=== PATIENT | female | born 1945 | race Caucasian/White ===

== ENCOUNTER 2019-09-29 07:05 | Outpatient (CLI) | payer MEDICARE, BC ==
[2019-09-29 12:49] LABS: #Eosinphils 0.1 thou/uL (0.0-0.7); #Lymphocytes 2.7 thou/uL (1.20-3.40); #Monocytes 0.9 thou/uL (0.11-0.59); %Basophils 0.6 % (0.0-1.0); %Eosinophils 2.1 % (0.0-10.0); %Lymphocytes 40.4 % (21.0-51.0); %Monocytes 12.6 % (0.0-10.0); %Neutrophils 44.3 % (42.0-75.0); Hemoglobin 13.4 g/dL (12.0-16.0); Mean Corpuscular HGB CONC 33.7 g/dL (32.0-36.0); Mean Corpuscular Hemoglobin 32.4 pg (27.0-31.0); Platelet Count 174 thou/uL (130-400); RBC Distribution Width 11.4 % (11.5-14.5); Red Blood Cell (RBC) Count 4.14 mill/uL (4.20-5.40); White Blood Cell (WBC) Count 6.7 thou/uL (4.8-10.8)
[2019-09-29 13:12] LABS: Anion Gap 11 mmol/L (10-20); BUN (Urea Nitrogen) 15 mg/dL (9.8-20.1); Calc. Creatinine Clearance 0 mL/min (70-130); Calcium 9.7 mg/dL (7.8-10.44); Carbon Dioxide 27 mmol/L (23-31); Chloride 106 mmol/L (98-107); Estimated GFR-MDRD 74; Glucose 83 mg/dL (83-110); Potassium 4.2 mmol/L (3.5-5.1); Sodium 140 mmol/L (136-145)
== END 2019-09-29 07:06 | disposition home or self-care (01) ==
LOC: LABBT 07:05
PROVIDERS: ATTEND Orthopaedic Surgery
DX: Z01.818 Encounter for other preprocedural examination (principal); M75.101 Unspecified rotator cuff tear or rupture of right shoulder, not specified as traumatic
CPT/HCPCS: 80048; 85025; 93005; 93010

== ENCOUNTER 2019-10-01 07:41 | Day surgery (SDC) | payer MEDICARE, BC ==
[2019-09-29 11:03] VITALS: BMI 22.3
[2019-10-01] MEDS ORDERED: Fentanyl 100 MCG/2 ML VIAL ONE (08:18)
[2019-10-01] MEDS ORDERED: Midazolam HCl 2 mg/2 ml Vial ONE (08:18)
[2019-10-01] MEDS ORDERED: Promethazine HCl 25 MG/ML VIAL IM PRN (09:01)
[2019-10-01] MEDS ORDERED: Ropivacaine 0.2% 550 ML 550 ML NERVE BLCK SCH (09:01)
[2019-10-01] MEDS ORDERED: Ondansetron PF 4 MG/2 ML Vial IVP PRN (09:01)
[2019-10-01] MEDS ORDERED: Zolpidem Tartrate 5 MG TAB PO PRN (09:01)
[2019-10-01] MEDS ORDERED: Ketorolac Tromethamine 30 MG/ML VIAL IVP PRN (09:01)
[2019-10-01] MEDS ORDERED: Fentanyl 100 MCG/2 ML VIAL SLOW IVP PRN (09:02)
[2019-10-01] MEDS ORDERED: Acetaminophen 325 MG TAB PO PRN (09:03)
[2019-10-01] MEDS ORDERED: Lidocaine 1% w/Epinephrine 1:100K 30 ML VIAL ONE (10:40)
[2019-10-01] MEDS ORDERED: PROPOFOL 200 MG/20 ML VIAL ONE (12:57)
[2019-10-01] MEDS ORDERED: Ropivacaine 0.2% HCl/PF (40 MG/20 ML VIAL) ONE (12:57)
[2019-10-01] MEDS ORDERED: Ropivacaine 0.5% HCl/PF (150 MG/30 ML VIAL) ONE (12:57)
[2019-10-01] MEDS ORDERED: Ondansetron PF 4 MG/2 ML Vial ONE (12:57)
[2019-10-01] MEDS ORDERED: Glycopyrrolate 0.2 MG/ML 5 ML SYRINGE ONE (12:57)
[2019-10-01] MEDS ORDERED: Lidocaine 1% PF 5 ML VIAL ONE (12:57)
[2019-10-01] MEDS ORDERED: Rocuronium Bromide 10 MG/ML (10ML VIAL) ONE (12:57)
--- NOTE | 2019-10-01 15:26 | OP ---
DATE OF PROCEDURE: 10/01/2019 PREOPERATIVE DIAGNOSES: Right shoulder rotator cuff tear, labral tear, and biceps tendon tear. POSTOPERATIVE DIAGNOSES: Right shoulder rotator cuff tear, labral tear, and biceps tendon tear. PROCEDURES PERFORMED: 1. Right shoulder arthroscopy with debridement and shaving of degenerative labral tear and biceps tendon as well as any loose cartilage in the glenohumeral joint. 2. Arthroscopic rotator cuff repair. 3. Arthroscopic biceps tenotomy. 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 ESTIMATED BLOOD LOSS: Minimal. COMPLICATIONS: None. ANESTHESIA: She did have a general anesthetic as well as preoperative block. IMPLANTS: We used 1 triple-loaded titanium rotator cuff anchor. We also used a 4.75 Bio[employer]posite SwiveLock for a double-row repair. DISPOSITION: She did go to recovery room in stable condition. INDICATIONS: This is an active 74-year-old female, who comes in complaining of significant pain and weakness using her right arm. At this time, she opted to have surgery. DESCRIPTION OF PROCEDURE: After all appropriate consent forms were explained and signed, she was taken back to the operative room and at this time was given general anesthetic. Once the level of anesthesia was appropriate, she was rolled to the left lateral decubitus position with all bony prominences well padded. Axillary roll was placed underneath the left axilla and a gallegos bag was inflated to hold her in this position. All bony prominences were well padded. The arm was then taken through full range of motion and was then suspended arthroscopically in standard fashion with 10 pounds of weight. The right shoulder and upper extremity were then prepped and draped in standard surgical fashion. At this time, bony anatomical landmarks were drawn out, and the subacromial space was infiltrated with Marcaine with epinephrine. A posterior portal was established. Scope was placed into the shoulder joint. Immediately, we noted a large amount of tearing in the shoulder including the rotator cuff, the biceps tendon itself and circumferential labrum. The anterior working portal was made using a needle localization technique and the shaver was used to shave down these areas to give us better visualization. Indeed, the biceps tendon did have significant tearing, it was not felt appropriate for a tenodesis and a tenotomy was performed using the SERFAS energy probe. The undersurface of the rotator cuff was debrided from this area. There was significant degenerative labrum circumferentially. This was also debrided with the shaver and there was some small areas of cartilage loss from the glenoid, which was gently debrided with a mechanical shaver as well. No loose bodies were noted in the axillary pouch. The top portion of subscapularis had to be debrided as a partial tear was noted, but the remaining portion of the tendon was intact. Once this was done, the inside of the joint looked pretty good. We then removed the camera, replaced into the subacromial space. Lateral working portal was then made. At this time, the bursa was removed from off the underlying cuff. The soft tissue was removed off the tuberosity and we were able to define our shape of our tear. Posteriorly, we needed some ypgl-sh-lbid sutures and the Scorpion device was used to place 2 Orthocord sutures in [id number] fashion. Once this was done, we then placed 1 triple-loaded anchor through a separate stab incision into the greater tuberosity. We then ran these 3 sets of sutures through the tendon using the Scorpion device in mattress fashion. These were all tied and all 6 strings were then taken laterally down the arm and placed through a 4.75 SwiveLock for our double row repair. This gave us an excellent repair. The scope was then removed and at this time, the shoulder was drained. Our portals were then closed with nylon sutures. Bulky sterile dressing was applied with paper tape, and at this time, she was awakened. She was taken to recovery room in stable condition. All counts were correct at the end of the case and she did receive preoperative IV antibiotics. Job ID: [id number]
== END 2019-10-01 16:00 | disposition home or self-care (01) ==
LOC: SDC 07:41
PROVIDERS: ATTEND Orthopaedic Surgery
PROC: 0LQ14ZZ Repair Right Shoulder Tendon, Percutaneous Endoscopic Approach (ICD-10-PCS; principal; 2019-10-01)
PROC: 0RHJ44Z Insertion of Internal Fixation Device into Right Shoulder Joint, Percutaneous Endoscopic Approach (ICD-10-PCS; 2019-10-01)
PROC: 0RNJ4ZZ Release Right Shoulder Joint, Percutaneous Endoscopic Approach (ICD-10-PCS; 2019-10-01)
PROC: 3E0T3BZ Introduction of Anesthetic Agent into Peripheral Nerves and Plexi, Percutaneous Approach (ICD-10-PCS; 2019-10-01)
DX: M75.121 Complete rotator cuff tear or rupture of right shoulder, not specified as traumatic (principal); S43.401A Unspecified sprain of right shoulder joint, initial encounter; S46.111A Strain of muscle, fascia and tendon of long head of biceps, right arm, initial encounter; G89.18 Other acute postprocedural pain; E78.5 Hyperlipidemia, unspecified; J45.909 Unspecified asthma, uncomplicated; K21.9 Gastro-esophageal reflux disease without esophagitis; Z79.82 Long term (current) use of aspirin; Z79.899 Other long term (current) drug therapy
CPT/HCPCS: 29826; 29827; 64416; A4306; C1713 ×2; J0690; J2001; J2250; J2405; J2704; J2795; J3010